=== PATIENT | female | born 2000 | race Hispanic/Latino ===

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

== ENCOUNTER 2020-03-21 22:12 | Emergency (ER) | payer MEDICAID ==
[~2020-03-21] VITALS: Ht 165.1 cm; Wt 118.0 kg
[~2020-03-21 22:12] MED LIST changes: +FERROUS SULF325 M3 PO
[2020-03-21 23:10] LABS: IMMATURE GRANULOCYTES 0.4 % (0.0-5.0); MEAN CORPUSCULAR HGB 17.5 pG CALC (26.0-32.0); MEAN CORPUSCULAR HGB CONC 27.3 g/dL CAL (32.0-36.0); NEUT# 5.35 thou/uL (2.00-7.15); RED BLOOD COUNT 5.48 mill/uL (4.20-5.60); RED CELL DISTRI WIDTH 21.1 % (11.5-15.5)
[2020-03-21 23:11] LABS: HEMATOCRIT 35.2 % (37.0-47.0); HEMOGLOBIN 9.6 g/dl (12.0-16.0); MEAN CELL VOLUME 64.2 fL CALC (80.0-100.0)
[2020-03-21 23:26] LABS: ALBUMIN 4.3 g/dL (3.2-5.0); ALKALINE PHOSPHATASE 90 u/l (38-126); AMYLASE 43 u/l (30-110); ANION GAP 14 (6-22 (CALC)); BUN 12 mg/dL (8-21); BUN/CREATININE RATIO 20 (12-20 (CALC)); CARBON DIOXIDE 22 mmol/l (22-30); CHLORIDE 103 mmol/l (95-108); CREATININE 0.6 mg/dL (0.5-1.0); GFR > 60 ML/MIN (>=60 (CALC)); GFR FOR AFR.AMER. > 60 ML/MIN (>=60 (CALC)); POTASSIUM 4.1 mmol/l (3.5-5.1); SGOT/AST 19 u/l (14-36); SODIUM 135 mmol/l (137-146); TOTAL PROTEIN 7.6 g/dL (6.3-8.2)
[2020-03-21 23:28] LABS: BILIRUBIN, TOTAL 0.2 mg/dL (0.0-1.4)
[2020-03-22 00:27] LABS: URINE BILIRUBIN - DIPSTICK NEGATIVE (NEGATIVE); URINE COLOR YELLOW; URINE GLUCOSE - DIPSTICK NEGATIVE (NEGATIVE); URINE KETONE NEGATIVE (NEGATIVE); URINE LEUK ESTERASE SMALL (NEGATIVE); URINE NITRITE - DIPSTICK NEGATIVE (Negative); URINE PROTEIN - DIPSTICK TRACE mg/dL (NEG-TRACE); URINE SPECIFIC GRAVITY >=1.030; URINE UROBILINOGEN - DIPSTICK 0.2 E.U./dL (0.2)
[2020-03-22 00:28] LABS: URINE BLOOD DIPSTICK NEGATIVE (NEGATIVE)
[2020-03-22 00:29] LABS: URINE BACTERIA MODERATE hpf; URINE EPITHELIAL CELLS MANY EPI/hpf (0-FEW)
[2020-03-22 00:46] VITALS: BP 114/52
[2020-03-22] MEDS ORDERED: CIPROFLOXACN500 MG PO (00:49)
== END 2020-03-22 00:55 | disposition home or self-care (01) | DRG 690 ==
LOC: ED 22:12
PROVIDERS: Emergency Medicine
DX: N39.0 Urinary tract infection, site not specified (principal); F41.9 Anxiety disorder, unspecified
CPT/HCPCS: Q9967

== ENCOUNTER 2021-05-10 11:15 | Emergency (ER) | payer MEDICAID ==
[~2021-05-10] VITALS: Ht 165.1 cm; Wt 120.0 kg
[~2021-05-10 11:15] MED LIST changes: +CIPROFLOXACN500 MG PO
[2021-05-10] MEDS ORDERED: AUGMENTIN250 MG PO (11:33)
[2021-05-10] MEDS ORDERED: BENADRYL ALLERG25 MG PO ×2 (11:49→12:03)
[2021-05-10] MEDS ORDERED: PATADAY0.2 % OS ×2 (11:49→12:03)
[2021-05-10 12:05] VITALS: BP 127/80
== END 2021-05-10 12:05 | disposition home or self-care (01) ==
LOC: ED 11:15
DX: T78.3XXA Angioneurotic edema, initial encounter (principal); F41.9 Anxiety disorder, unspecified; F32.A Depression, unspecified

== ENCOUNTER 2021-09-20 23:34 | Emergency (ER) | payer MEDICAID ==
[~2021-09-20 23:34] MED LIST changes: +AUGMENTIN250 MG PO; +BENADRYL ALLERG25 MG PO; +PATADAY0.2 % OS
== END 2021-09-21 01:00 | disposition left against medical advice (07) | DRG 951 ==
LOC: ED 23:34 → LWOBS 09-21 00:30
DX: Z53.21 Procedure and treatment not carried out due to patient leaving prior to being seen by health care provider (principal)

== ENCOUNTER 2022-01-01 03:53 | Emergency (ER) | payer MEDICAID ==
[~2022-01-01] VITALS: Ht 165.1 cm; Wt 118.0 kg
[2022-01-01 04:07] VITALS: BP 112/60
[2022-01-01 04:26] LABS: URINE BILIRUBIN - DIPSTICK NEGATIVE (NEGATIVE); URINE BLOOD DIPSTICK NEGATIVE (NEGATIVE); URINE COLOR YELLOW; URINE GLUCOSE - DIPSTICK NEGATIVE (NEGATIVE); URINE KETONE NEGATIVE (NEGATIVE); URINE PH 7.5 (4.5-8.0); URINE PROTEIN - DIPSTICK NEGATIVE (NEG-TRACE); URINE UROBILINOGEN - DIPSTICK 0.2 E.U./dL (0.2)
[2022-01-01 04:28] LABS: URINE LEUK ESTERASE SMALL (NEGATIVE); URINE NITRITE - DIPSTICK NEGATIVE (Negative)
[2022-01-01 04:31] LABS: IMMATURE GRANULOCYTES 0.1 % (0.0-5.0); MEAN CELL VOLUME 61.2 fL CALC (80.0-100.0); MEAN CORPUSCULAR HGB 16.6 pG CALC (26.0-32.0); MEAN CORPUSCULAR HGB CONC 27.1 g/dL CAL (32.0-36.0); RED BLOOD COUNT 5.54 mill/uL (4.20-5.60); RED CELL DISTRI WIDTH 20.5 % (11.5-15.5)
[2022-01-01 04:38] LABS: HEMATOCRIT 33.9 % (37.0-47.0); HEMOGLOBIN 9.2 g/dl (12.0-16.0)
[2022-01-01 04:39] LABS: URINE BACTERIA FEW hpf; URINE MUCUS FEW hpf (NONE-FEW); URINE SQUAMOUS EPITHELIAL CELL FEW EPI/hpf (0-FEW)
[2022-01-01 04:40] LABS: ALBUMIN 4.3 g/dL (3.2-5.0); ALKALINE PHOSPHATASE 85 u/l (38-126); AMYLASE 52 u/l (30-110); BUN 9 mg/dL (7-17); BUN/CREATININE RATIO 14 (12-20 (CALC)); CARBON DIOXIDE 28 mmol/l (22-30); CHLORIDE 101 mmol/l (95-108); CREATININE 0.7 mg/dL (0.5-1.0); GFR FOR AFR.AMER. > 60 ML/MIN (>=60 (CALC)); GFR OTHER RACES > 60 ML/MIN (>=60 (CALC)); LIPASE 150 u/l (23-300); SODIUM 137 mmol/l (137-146); TOTAL PROTEIN 7.6 g/dL (6.3-8.2)
[2022-01-01 04:48] LABS: ANION GAP 11 (6-22 (CALC)); BILIRUBIN, TOTAL 0.8 mg/dL (0.0-1.4); POTASSIUM 3.4 mmol/l (3.5-5.1); SGOT/AST 94 u/l (14-36)
[2022-01-01] MEDS ORDERED: PROMETHAZINE HY25 M1 PO (05:43)
[2022-01-01 06:53] VITALS: BP 112/60
== END 2022-01-01 06:53 | disposition home or self-care (01) ==
LOC: ED 03:53
PROVIDERS: Family Medicine
DX: A08.4 Viral intestinal infection, unspecified (principal); F41.9 Anxiety disorder, unspecified; F32.A Depression, unspecified
CPT/HCPCS: Q9967